=== PATIENT | female | born 1985 | race Caucasian/White ===

== ENCOUNTER 2019-05-25 08:01 | Emergency (ER) | payer OTHER ==
[~2019-05-25] VITALS: Ht 175.3 cm; Wt 113.6 kg
[2019-05-25] MEDS ORDERED: BIRTH CONTROL (08:13)
[2019-05-25 08:34] LABS: EOS # 0.2 (0.04-0.40); EOS % 1.9 % (1.0-5.0); HEMATOCRIT 39.7 % (37.0-47.0); HEMOGLOBIN 13.2 g/dL (12.5-16.0); LYMPH# 1.3 (1.50-4.00); MEAN CELL VOLUME 78 fl (78-100); MEAN CORPUSCULAR HEMOGLOBIN 26 pg (27-31); MEAN CORPUSCULAR HGB CONC 33 g/dL (33-37); MEAN PLATELET VOLUME 10.2 fl (7.4-10.4); MONO # 0.5 (0.20-0.80); PLATELET COUNT 352 K/mm3 (130-400); RED BLOOD COUNT 5.07 M/mm3 (4.10-5.30); RED CELL DISTRIBUTION WIDTH 12.7 % (11.5-14.5)
[2019-05-25 08:38] LABS: ALBUMIN 4.2 g/dL (3.5-5.0)
[2019-05-25 08:39] LABS: POTASSIUM 3.4 mmol/L (3.5-5.1); SODIUM 137 mmol/L (136-145)
[2019-05-25 08:40] LABS: CALCIUM 9.9 mg/dL (8.3-10.5)
[2019-05-25 08:41] LABS: GLUCOSE 115 mg/dL (65-105); TOTAL PROTEIN 7.7 g/dL (6.4-8.3)
[2019-05-25 08:42] LABS: CARBON DIOXIDE 20 mmol/L (22-29)
[2019-05-25 08:43] LABS: TOTAL BILIRUBIN 0.7 mg/dL (0.2-1.2)
[2019-05-25 08:46] LABS: AST-SGOT 14 U/L (5-34)
[2019-05-25 08:47] LABS: ALT/SGPT 12 U/L (0-55)
[2019-05-25 08:56] LABS: TROPONIN-I < 0.03 ng/mL (<0.030)
[2019-05-25 09:09] LABS: D-DIMER 0.29 mg/L FEU (0.15-0.50)
[2019-05-25] MEDS ORDERED: METOPROLOL SUCC25 M1 PO (09:50)
[2019-05-25 10:00] VITALS: BP 147/93
[2019-05-25] MEDS ORDERED: ENSKYCE 0.15 MG1 TAB PO (10:03)
== END 2019-05-25 09:55 | disposition home or self-care (01) ==
LOC: ED 08:01
PROVIDERS: Nurse Practitioner Primary Care
DX: I10 Essential (primary) hypertension (principal)

== ENCOUNTER 2020-11-26 07:19 | Emergency (ER) | payer OTHER ==
[~2020-11-26 07:19] MED LIST: BIRTH CONTROL; ENSKYCE 0.15 MG1 TAB PO; METOPROLOL SUCC25 M1 PO
[2020-11-26] MEDS ORDERED: ENSKYCE 0.15 MG1 TAB PO (07:29)
[2020-11-26] MEDS ORDERED: METOPROLOL SUCC25 M1 PO (07:29)
[2020-11-26] MEDS ORDERED: ASPIRIN E.C. 8181 MG PO (07:30)
[2020-11-26 08:31] LABS: BASO # 0.02 (0.02-0.10); EOS # 0.22 (0.04-0.40); EOS % 2.9 % (1.0-5.0); HEMATOCRIT 39.8 % (37.0-47.0); HEMOGLOBIN 13.5 g/dL (12.5-16.0); LYMPH# 1.57 (1.50-4.00); MEAN CELL VOLUME 81 fl (78-100); MEAN CORPUSCULAR HEMOGLOBIN 27 pg (27-31); MEAN CORPUSCULAR HGB CONC 34 g/dL (33-37); MEAN PLATELET VOLUME 10.3 fl (7.4-10.4); MONO # 0.48 (0.20-0.80); NEU # 5.25 (1.40-6.50); PLATELET COUNT 332 K/mm3 (130-400); RED BLOOD COUNT 4.94 M/mm3 (4.10-5.30); RED CELL DISTRIBUTION WIDTH 12.5 % (11.5-14.5); WHITE BLOOD COUNT 7.6 K/mm3 (4.8-10.8)
[2020-11-26 08:37] LABS: POTASSIUM 4.1 mmol/L (3.5-5.1)
[2020-11-26 08:38] LABS: CALCIUM 9.4 mg/dL (8.3-10.5)
[2020-11-26 09:01] LABS: URINE APPEARANCE HAZY; URINE BILIRUBIN NEGATIVE (NEGATIVE); URINE BLOOD 250 ery/uL (NEGATIVE); URINE COLOR YELLOW; URINE GLUCOSE NEGATIVE (NEGATIVE); URINE KETONE NEGATIVE (NEGATIVE); URINE LEUKOCYTE ESTERASE TRACE (NEGATIVE); URINE NITRATE NEGATIVE (NEGATIVE); URINE PROTEIN(semi-quant) TRACE mg/dL (NEGATIVE); URINE UROBILINOGEN NORMAL (NORMAL)
[2020-11-26 09:07] LABS: URINE MUCUS PRESENT (NOT PRESENT)
[2020-11-26 10:12] VITALS: BP 129/85
== END 2020-11-26 10:13 | disposition home or self-care (01) ==
LOC: ED 07:19
PROVIDERS: Family Medicine
DX: R61 Generalized hyperhidrosis (principal); R19.7 Diarrhea, unspecified; R31.29 Other microscopic hematuria; Z79.82 Long term (current) use of aspirin; Z82.49 Family history of ischemic heart disease and other diseases of the circulatory system

== ENCOUNTER 2021-09-16 19:35 | Emergency (ER) | payer OTHER ==
[~2021-09-16] VITALS: Ht 175.3 cm; Wt 127.3 kg
[~2021-09-16 19:35] MED LIST changes: +ASPIRIN E.C. 8181 MG PO
[2021-09-16 21:08] VITALS: BP 147/78
== END 2021-09-16 21:08 | disposition home or self-care (01) ==
LOC: ED 19:35
DX: S83.91XA Sprain of unspecified site of right knee, initial encounter (principal); W19.XXXA Unspecified fall, initial encounter; Y93.67 Activity, basketball
CPT/HCPCS: 15976; L1830

== ENCOUNTER 2021-10-03 13:57 | Outpatient (RCR) | payer OTHER | END 2021-10-21 | disposition still patient (30) | LOC: PT | DX: M25.561 Pain in right knee (principal); R53.1 Weakness; R26.81 Unsteadiness on feet ==

== ENCOUNTER 2021-10-24 15:26 | Outpatient (RCR) | payer OTHER | END 2021-11-21 | disposition home or self-care (01) | LOC: PT | DX: M25.561 Pain in right knee (principal); R53.1 Weakness; R26.81 Unsteadiness on feet ==

== ENCOUNTER 2021-11-23 15:30 | Outpatient (RCR) | payer OTHER | END 2021-11-23 17:00 | disposition home or self-care (01) | LOC: PT 15:30 | DX: M25.561 Pain in right knee (principal); R53.1 Weakness; R26.81 Unsteadiness on feet ==

== ENCOUNTER 2021-12-27 18:29 | Emergency (ER) | payer OTHER ==
[~2021-12-27] VITALS: Wt 117.2 kg
[2021-12-27 19:14] LABS: BASO # 0.02 K/mm3 (0.02-0.10); EOS # 0.11 K/mm3 (0.04-0.40); EOS % 1.3 % (1.0-5.0); HEMATOCRIT 41.5 % (37.0-47.0); HEMOGLOBIN 13.9 g/dL (12.5-16.0); LYMPH# 1.86 K/mm3 (1.50-4.00); MEAN CELL VOLUME 80 fl (78-100); MEAN CORPUSCULAR HEMOGLOBIN 27 pg (27-31); MEAN CORPUSCULAR HGB CONC 34 g/dL (33-37); MEAN PLATELET VOLUME 10.2 fl (7.4-10.4); MONO # 0.61 K/mm3 (0.20-0.80); NEU # 6.13 K/mm3 (1.40-6.50); PLATELET COUNT 336 K/mm3 (130-400); RED BLOOD COUNT 5.22 M/mm3 (4.10-5.30); RED CELL DISTRIBUTION WIDTH 12.5 % (11.5-14.5); WHITE BLOOD COUNT 8.7 K/mm3 (4.8-10.8)
[2021-12-27 19:25] LABS: ALBUMIN 4.3 g/dL (3.5-5.0)
[2021-12-27 19:26] LABS: POTASSIUM 3.8 mmol/L (3.5-5.1); SODIUM 140 mmol/L (136-145)
[2021-12-27 19:27] LABS: CALCIUM 10.1 mg/dL (8.3-10.5)
[2021-12-27 19:28] LABS: GLUCOSE 96 mg/dL (65-105); TOTAL PROTEIN 8.3 g/dL (6.4-8.3)
[2021-12-27 19:29] LABS: CARBON DIOXIDE 18 mmol/L (22-29)
[2021-12-27 19:30] LABS: TOTAL BILIRUBIN 0.5 mg/dL (0.2-1.2)
[2021-12-27 19:33] LABS: AST-SGOT 22 U/L (5-34)
[2021-12-27 19:34] LABS: ALT/SGPT 18 U/L (0-55)
[2021-12-27 19:42] LABS: TROPONIN-I < 0.030 ng/mL (<0.030)
[2021-12-27 19:46] LABS: D-DIMER 0.53 mg/L FEU (0.15-0.50)
[2021-12-27 20:04] LABS: URINE APPEARANCE CLEAR; URINE BILIRUBIN NEGATIVE (NEGATIVE); URINE BLOOD 250 ery/uL (NEGATIVE); URINE COLOR YELLOW; URINE GLUCOSE NEGATIVE (NEGATIVE); URINE KETONE NEGATIVE (NEGATIVE); URINE LEUKOCYTE ESTERASE TRACE (NEGATIVE); URINE MUCUS PRESENT (NOT PRESENT); URINE NITRATE NEGATIVE (NEGATIVE); URINE PROTEIN(semi-quant) TRACE (NEGATIVE); URINE UROBILINOGEN NORMAL (NORMAL)
[2021-12-27] MEDS ORDERED: DIFLUCAN100 M1 PO (21:09)
[2021-12-27] MEDS ORDERED: MELOXICAM15 MG PO (21:09)
[2021-12-27 21:18] VITALS: BP 143/92
== END 2021-12-27 21:22 | disposition home or self-care (01) ==
LOC: ED 18:29
PROVIDERS: Nurse Practitioner
DX: J18.9 Pneumonia, unspecified organism (principal); R07.89 Other chest pain; B37.41 Candidal cystitis and urethritis; Z20.822 Contact with and (suspected) exposure to COVID-19
CPT/HCPCS: J7030; Q9967

== ENCOUNTER → 2023-02-27 | Outpatient (CLI) | payer BC ==
[~2023-02-27] MED LIST changes: +DIFLUCAN100 M1 PO; +MELOXICAM15 MG PO
== END ==
LOC: RAD 08:52
DX: R79.89 Other specified abnormal findings of blood chemistry (principal); R80.8 Other proteinuria

== ENCOUNTER → 2023-02-28 | Outpatient (CLI) | payer BC ==
[2023-02-28 17:24] LABS: BASO # 0.03 K/mm3 (0.02-0.10); EOS # 0.27 K/mm3 (0.04-0.40); EOS % 3.7 % (1.0-5.0); HEMATOCRIT 42.7 % (37.0-47.0); LYMPH# 2.46 K/mm3 (1.50-4.00); MEAN CELL VOLUME 83 fl (78-100); MEAN CORPUSCULAR HEMOGLOBIN 27 pg (27-31); MEAN CORPUSCULAR HGB CONC 33 g/dL (33-37); MEAN PLATELET VOLUME 9.9 fl (7.4-10.4); MONO # 0.53 K/mm3 (0.20-0.80); NEU # 4.03 K/mm3 (1.40-6.50); PLATELET COUNT 341 K/mm3 (130-400); RED BLOOD COUNT 5.14 M/mm3 (4.10-5.30); RED CELL DISTRIBUTION WIDTH 12.3 % (11.5-14.5); WHITE BLOOD COUNT 7.3 K/mm3 (4.8-10.8)
[2023-02-28 17:37] LABS: ALBUMIN 4.4 g/dL (3.5-5.0); CALCIUM 10.2 mg/dL (8.3-10.5); POTASSIUM 3.9 mmol/L (3.5-5.1); TOTAL BILIRUBIN 0.3 mg/dL (0.2-1.2); TOTAL PROTEIN 7.7 g/dL (6.4-8.3)
[2023-02-28 17:39] LABS: MAGNESIUM 1.74 mg/dL (1.60-2.60)
[2023-02-28 18:31] LABS: ERYTHROCYTE SEDIMENTATION RATE 18 mm/hr (0-20)
[2023-03-01 00:35] LABS: COMPLEMENT C3 155 mg/dL (83-193); COMPLEMENT-C4 18 mg/dL (15-57)
[2023-03-01 13:36] LABS: ANA SCREEN with REFLEX Negative (Negative)
[2023-03-02 04:09] LABS: LUPUS ANTICOAGULANT DRVVT 35.6 seconds (0.0-47.0)
== END ==
LOC: LAB 16:23
PROVIDERS: Internal Medicine Nephrology
DX: R79.89 Other specified abnormal findings of blood chemistry (principal); R81 Glycosuria; R80.8 Other proteinuria

== ENCOUNTER → 2023-03-11 | Outpatient (CLI) | payer BC | LOC: LAB 16:17 | DX: R79.89 Other specified abnormal findings of blood chemistry (principal); R81 Glycosuria; R80.8 Other proteinuria ==

== ENCOUNTER → 2023-12-18 | Outpatient (CLI) | payer BC ==
[2023-12-18 08:38] LABS: ALBUMIN 4.5 g/dL (3.5-5.0)
[2023-12-18 08:39] LABS: CALCIUM 10.4 mg/dL (8.3-10.5)
[2023-12-18 08:40] LABS: TOTAL PROTEIN 7.7 g/dL (6.4-8.3)
[2023-12-18 08:42] LABS: TOTAL BILIRUBIN 0.8 mg/dL (0.2-1.2)
[2023-12-18 09:11] LABS: BASO # 0.02 K/mm3 (0.02-0.10); EOS # 0.12 K/mm3 (0.04-0.40); EOS % 1.7 % (1.0-5.0); HEMATOCRIT 41.3 % (37.0-47.0); HEMOGLOBIN 14.1 g/dL (12.5-16.0); LYMPH# 1.38 K/mm3 (1.50-4.00); MEAN CELL VOLUME 81 fl (78-100); MEAN CORPUSCULAR HEMOGLOBIN 28 pg (27-31); MEAN CORPUSCULAR HGB CONC 34 g/dL (33-37); MEAN PLATELET VOLUME 10.4 fl (7.4-10.4); MONO # 0.47 K/mm3 (0.20-0.80); NEU # 4.99 K/mm3 (1.40-6.50); PLATELET COUNT 333 K/mm3 (130-400); RED BLOOD COUNT 5.09 M/mm3 (4.10-5.30); RED CELL DISTRIBUTION WIDTH 12.2 % (11.5-14.5)
== END ==
LOC: LAB 08:16
PROVIDERS: Physician Assistant
DX: Z13.1 Encounter for screening for diabetes mellitus (principal); Z13.29 Encounter for screening for other suspected endocrine disorder; Z13.220 Encounter for screening for lipoid disorders; K90.9 Intestinal malabsorption, unspecified